=== PATIENT | male | born 1995 | race Caucasian/White ===

== ENCOUNTER 2016-10-04 13:32 | Emergency (ER) | payer BC ==
[2016-10-04 13:46] VITALS: TEMP 98.4; O2SAT 94
--- NOTE | 2016-10-04 14:03 | EDPHY ---
H & P Time Seen by Provider: 10/04/16 13:47 HPI/ROS: CHIEF COMPLAINT: Right forearm laceration HISTORY OF PRESENT ILLNESS: 20-year-old male arrives via private vehicle states that he sustained accidental laceration to his right forearm ulnar aspect when he had to break a window at 3:00 a.m. to get into his house. Denies foreign body sensation. Denies paresthesia. Denies sensory motor deficit. PHYSICAL EXAM (Prior to examination, patient consented to physical exam, hands were washed and my usual and customary physical exam procedures followed) 1) GENERAL: Well-developed, well-nourished, alert and oriented. Appears to be in no acute distress. 2) HEAD: Normocephalic 3) HEENT: sclera anicteric 4) LUNGS: Breathing comfortably. 5) SKIN: right forearm ulnar aspect 4 cm irregular laceration 6) MUSCULOSKELETAL: no musculoskeletal deficits no strength defect. 7) NEUROLOGIC: Radial ulnar median nerve function intact distally Smoking Status: Never smoked Constitutional: Initial Vital Signs Temperature (C) 36.9 C 10/04/16 13:43 Heart Rate 78 10/04/16 13:43 Respiratory Rate 16 10/04/16 13:43 Blood Pressure 124/83 H 10/04/16 13:43 O2 Sat (%) 94 10/04/16 13:43 O2 Delivery Mode Room Air Allergies/Adverse Reactions: No Known Allergies Allergy (Unverified 10/04/16 13:43) Home Medications: Medication Instructions Recorded Cephalexin [Keflex] 500 mg PO QID 5 Days 10/04/16 MDM/Departure - MDM Imaging Results: Imaging Impressions Forearm X-Ray 10/04/16 14:04 Impression: No fracture of the right radius or ulna. Imaging: I viewed and interpreted images myself Procedures: Procedure: Laceration repair. I explained the indications, risks and benefits for both laceration repair and anesthetic administration. Verbal consent was obtained from the patient . The laceration on the right forearm was anesthetized using 0.5% bupivicaine with epinephrine . After anesthetic administered the patient was observed for a period of time and had no apparent adverse effects. The wound was cleaned, prepped, draped in normal sterile fashion and explored to its base. No foreign body seen, no foreign bodies palpated. There were no deep structures involved. No tendon injury was identified. The wound was repaired with 8 simple interrupted 4 0 Prolene suture. The wound repair was complex. The procedure was performed by myself. Patient has been informed that scarring will occur, although efforts have been made to minimize this. - Depart Disposition: Home, Routine, Self-Care Clinical Impression: Laceration of right forearm Qualifiers: Encounter type: initial encounter Qualified Code(s): S51.811A - Laceration without foreign body of right forearm, initial encounter Condition: Good Instructions: Laceration (ED) Additional Instructions: Return to the ER if you develop redness, swelling, discharge, warmth to the wound, red streaks going up your arm , or any other symptoms that concern you. Prescriptions: Cephalexin [Keflex] 500 mg PO QID 5 Days Referrals: Return, to the ER in 14 days for suture removal [Other] - As per Instructions
[2016-10-04 15:31] VITALS: BP 111/74; PULSE 70; RESP 14
== END 2016-10-04 15:22 | disposition home or self-care (01) ==
PROC: 0HQDXZZ Repair Right Lower Arm Skin, External Approach (ICD-10-PCS; principal; 2016-10-04)
DX: S51.811A Laceration without foreign body of right forearm, initial encounter (principal); W26.8XXA Contact with other sharp object(s), not elsewhere classified, initial encounter; Y92.009 Unspecified place in unspecified non-institutional (private) residence as the place of occurrence of the external cause; Y99.8 Other external cause status